=== PATIENT | male | born 1960 | race Caucasian/White ===

== ENCOUNTER 2018-06-25 08:40 | Outpatient (CLI) | payer BC ==
--- NOTE | 2018-06-25 09:41 | MRI ---
Lumbar spine MRI: 06/25/2018 COMPARISON: None HISTORY: Back pain, left leg pain, lumbar radiculopathy TECHNIQUE: Multiplanar multisequence MR imaging of the lumbar spine obtained without contrast FINDINGS: The sagittal STIR imaging demonstrates no focal area of osseous marrow edema. Lumbar vertebral body height and alignment appears normal. On the basis of 5 lumbar type vertebral alf dies, the conus medullaris terminates at T12. T12-L1: Minimal disc bulge. Mild bilateral facet hypertrophy. No significant central canal or neural foraminal stenosis. L1-2: Minimal disc bulge. Small left foraminal disc protrusion. No significant central canal or neura l foraminal stenosis. L2-3: Small right foraminal disc protrusion. Mild bilateral facet hypertrophy. No significant central canal or neural foraminal stenosis. L3-4: Small foraminal/posterior foraminal disc protrusion on the right. Mild right neural foraminal s tenosis. No significant central canal or left neural foraminal stenosis. L4-5: Disc space narrowing and disc desiccation noted with mild disc bulge. There is a central annula r tear with an associated central disc protrusion. Mild central canal stenosis. No significant neural foraminal stenosis. L5-S1: No significant central canal or neural foraminal stenosis. There is a incompletely imaged mildly heterogeneous lesion of increased T2 signal within the mid pole of the left kidney measuring 2.5 cm. This may not represent a simple cyst but is incompletely assessed on this exam. Renal ultrasound advised. IMPRESSION: Degenerative change as detailed above. T2 hyperintensity within the left kidney for which renal ultrasound is advised. CODE T
== END 2018-06-25 08:41 | disposition home or self-care (01) ==
LOC: TBSIIMAG 08:40
PROVIDERS: ATTEND Neurological Surgery
DX: M47.26 Other spondylosis with radiculopathy, lumbar region (principal); R93.422 Abnormal radiologic findings on diagnostic imaging of left kidney
CPT/HCPCS: 72148

== ENCOUNTER 2018-07-06 08:41 | Outpatient (CLI) | payer BC ==
--- NOTE | 2018-07-06 09:24 | ULT ---
Renal ultrasound: 07/06/2018 COMPARISON: None. Correlation made to lumbar spine MRI performed 06/25/2018, which revealed a T2 hyperi ntense lesion within the left kidney TECHNIQUE: Multiplanar grayscale sonographic imaging of the kidneys and urinary bladder obtained. FINDINGS: Urinary bladder is grossly unremarkable. The right kidney measures 10.6 cm in craniocaudal dimension and demonstrates no evidence for stone, h ydronephrosis, or mass lesion. Left kidney measures 12 cm in craniocaudal dimension and demonstrates no evidence for hydronephrosis or renal stone. There is a 3 cm lesion within the left kidney corresponding with the recent abnormality on MRI. This lesion is circumscribed and round with increased through transmission and a thin internal septation, most consistent with a mildly complex septated cyst. It demonstrates no internal blood flow or evidence of solid components. IMPRESSION: Bosniak II left renal cyst.
== END 2018-07-06 08:42 | disposition home or self-care (01) ==
LOC: SCSULT 08:41
PROVIDERS: ATTEND Neurological Surgery
DX: N28.1 Cyst of kidney, acquired (principal)
CPT/HCPCS: 76770